=== PATIENT | male | born 1975 | race Caucasian/White ===

== ENCOUNTER 2022-08-16 09:35 | Emergency (ER) | payer MEDICAID, OTHER ==
[~2022-08-16] VITALS: Ht 182.9 cm; Wt 90.9 kg
[~2022-08-16 09:35] MED LIST: CLOT15CR73 TP; NO HOME MEDS
[2022-08-16 09:41] VITALS: BP 125/81
[2022-08-16 11:43] LABS: CLARITY,URINE CLEAR (Clear); COLOR,URINE STRAW (Yellow); GLUCOSE, URINE NEGATIVE (Neg); KETONES,URINE NEGATIVE (Neg); LEUKOCYTE ESTERASE ,URINE NEGATIVE (Neg); NITRITES, URINE NEGATIVE (Neg); OCCULT BLOOD,URINE NEGATIVE (Neg); PH,URINE 5.5 (4.8-8.0); PROTEIN,URINE NEGATIVE (Neg); UROBILINOGEN,URINE 0.2 E.U/dL (0.2-1.0)
[2022-08-16 11:44] LABS: UA COLLECTION TYPE CLN CATCH MIDSTREAM
[2022-08-16] MEDS ORDERED: KEN0.1O TP (12:05)
== END 2022-08-16 12:08 | disposition home or self-care (01) ==
LOC: ER 09:36
DX: R21 Rash and other nonspecific skin eruption (principal); F12.90 Cannabis use, unspecified, uncomplicated; Z88.5 Allergy status to narcotic agent; Z91.018 Allergy to other foods
CPT/HCPCS: 36415; 81003; 86592; 99283

== ENCOUNTER 2022-10-28 10:31 | Emergency (ER) | payer MEDICAID ==
[~2022-10-28] VITALS: Ht 182.9 cm; Wt 90.9 kg
[2022-10-28 10:38] VITALS: BP 141/86
[2022-10-28] MEDS ORDERED: dexamethasone sod phosphate 10mg/ml inj PO STA (12:57)
== END 2022-10-28 13:10 | disposition home or self-care (01) ==
LOC: ER 10:31
DX: Q39.3 Congenital stenosis and stricture of esophagus (principal); F41.9 Anxiety disorder, unspecified; Z88.5 Allergy status to narcotic agent; Z91.018 Allergy to other foods; Z79.899 Other long term (current) drug therapy
CPT/HCPCS: 99283; J1100